=== PATIENT | female | born 1955 | race Two or more races ===

== ENCOUNTER 2017-06-23 17:24 | Emergency (ER) | payer MEDICAID ==
[~2017-06-23] VITALS: Ht 157.5 cm; Wt 72.6 kg
[~2017-06-23 17:24] MED LIST: ALPR0.5T; AMIT25TA9; ASPI81TA27; BISA1TAB; CARI-316; ENAL-3; GABA-497; HYDR-4663; HYDR25TA4; LEVO100T81; PROZAC; RABE20TA5
[2017-06-23 17:29] VITALS: BP 140/108
[2017-06-23] MEDS ORDERED: KETOROLAC TROMETH 60MG/2ML VIAL IM ONE (19:30)
== END 2017-06-23 19:55 | disposition home or self-care (01) ==
LOC: ER 17:33
DX: S63.501A Unspecified sprain of right wrist, initial encounter (principal); I10 Essential (primary) hypertension; M19.90 Unspecified osteoarthritis, unspecified site; Z88.5 Allergy status to narcotic agent; W11.XXXA Fall on and from ladder, initial encounter; Y93.89 Activity, other specified; Y99.8 Other external cause status; Y92.89 Other specified places as the place of occurrence of the external cause
CPT/HCPCS: 73110; 96372; 99284; J1885

== ENCOUNTER 2020-03-13 20:40 | Emergency (ER) | payer MEDICAID ==
[~2020-03-13] VITALS: Ht 157.5 cm; Wt 74.8 kg
[~2020-03-13 20:40] MED LIST changes: +ASPI-543; -ASPI81TA27; -CARI-316; +CARI350T22; -ENAL-3; +ENAL10TA13; -GABA-497; +GABA300C10; -HYDR-4663; +HYDR-4833
[2020-03-13 21:35] VITALS: BP 148/85
[2020-03-13 22:01] LABS: Urine Bacteria NONE SEEN /hpf (None Seen); Urine Blood Negative /uL (Negative); Urine Specific Gravity 1.014 (1.001-1.035); Urine WBC 1 /hpf (0 - 5)
[2020-03-13 22:41] LABS: Basophils # (auto) 0 10 ^3/uL (0-0.2); Basophils % (auto) 0.5 % (0.0-2.0); Eosinophils # (auto) 0.1 10 ^3/uL (0-0.8); Eosinophils % (auto) 1.6 % (0.0-7.0); Hematocrit 44.2 % (36.0-46.0); Hemoglobin 15.2 g/dL (12.2-16.2); Lymphocytes % (auto) 26.1 % (10.0-50.0); Mean Corpuscular Hgb Conc. 34.4 g/dL (32.0-36.0); Mean Corpuscular Volume 87.1 fL (80.0-100.0); Monocytes # (auto) 0.7 10 ^3/uL (0-1.3); Monocytes % (auto) 8.9 % (0.0-12.0); Neutrophils # (auto) 4.7 10 ^3/uL (1.6-8.6); Neutrophils % (auto) 62.9 % (37.0-80.0); Nucleated Red Blood Cells % 0.7 %; Platelet Count (auto) 204 10^3/uL (140-450); Red Blood Cells 5.08 10^6/uL (4.0-5.20); Red Cell Distribution Width 13.7 % (11.8-14.3); White Blood Cell 7.5 10^3/uL (4.4-10.8)
[2020-03-13 22:53] LABS: BUN/Creatinine Ratio 17.6; Calcium 8.5 mg/dL (8.5-10.1); Potassium 3.8 mmol/L (3.5-5.1)
[2020-03-13 22:55] LABS: Bilirubin, Total 0.3 mg/dL (0.2-1.0); Total Protein 7.8 g/dL (6.4-8.2)
== END 2020-03-14 01:20 | disposition home or self-care (01) ==
LOC: ER 20:41
DX: E11.649 Type 2 diabetes mellitus with hypoglycemia without coma (principal); M19.90 Unspecified osteoarthritis, unspecified site; I10 Essential (primary) hypertension; Z79.899 Other long term (current) drug therapy; Z79.82 Long term (current) use of aspirin; Z88.5 Allergy status to narcotic agent
CPT/HCPCS: 36415; 80053; 81001; 82962; 85025

== ENCOUNTER 2021-10-09 06:50 | Emergency (ER) | payer MEDICARE, MEDICAID ==
[~2021-10-09] VITALS: Ht 157.5 cm; Wt 72.6 kg
[~2021-10-09 06:50] MED LIST changes: +AMIT25TA12; -AMIT25TA9; +RABE20TA19; -RABE20TA5
[2021-10-09] MEDS ORDERED: KETOROLAC TROMETH 60MG/2ML VIAL IM ONE (08:15)
[2021-10-09 08:18] VITALS: BP 144/86
== END 2021-10-09 09:19 | disposition home or self-care (01) ==
LOC: ER 06:50
DX: M51.34 Other intervertebral disc degeneration, thoracic region (principal); M41.84 Other forms of scoliosis, thoracic region; F17.210 Nicotine dependence, cigarettes, uncomplicated; E11.9 Type 2 diabetes mellitus without complications; E78.5 Hyperlipidemia, unspecified; I10 Essential (primary) hypertension; Z88.6 Allergy status to analgesic agent
CPT/HCPCS: 72070; 73030; 93005; 96372; 99284; J1885

== ENCOUNTER 2023-09-20 12:20 | Inpatient (IN) | payer OTHER, MEDICAID ==
[~2023-09-20] VITALS: Ht 157.5 cm; Wt 78.5 kg
[~2023-09-20 12:20] MED LIST changes: -AMIT25TA12; +AMIT25TA20; -CARI350T22; +CARI350T27; -ENAL10TA13; +ENAL1TAB47; +GABA-1250; -GABA300C10
[2023-09-20 13:23] LABS: Basophils # (auto) 0 10 ^3/uL (0-0.2); Basophils % (auto) 0.6 % (0.0-2.0); Eosinophils # (auto) 0 10 ^3/uL (0-0.8); Eosinophils % (auto) 0.5 % (0.0-7.0); Hematocrit 50.3 % (36.0-46.0); Lymphocytes # (auto) 1.5 10 ^3/uL (0.4-5.4); Mean Corpuscular Hemoglobin 29.5 pg (28.0-32.0); Mean Corpuscular Hgb Conc. 33.8 g/dL (32.0-36.0); Mean Corpuscular Volume 87.4 fL (80.0-100.0); Monocytes # (auto) 0.5 10 ^3/uL (0-1.3); Monocytes % (auto) 6.8 % (0.0-12.0); Neutrophils # (auto) 5.5 10 ^3/uL (1.6-8.6); Neutrophils % (auto) 72.1 % (37.0-80.0); Red Blood Cells 5.75 10^6/uL (4.0-5.20); Red Cell Distribution Width 13.7 % (11.8-14.3); White Blood Cell 7.6 10^3/uL (4.4-10.8)
[2023-09-20 13:46] LABS: Alanine Aminotransferase 22 U/L (7-40); Albumin 5.2 g/dL (3.2-4.8); Alkaline Phosphatase 109 U/L (46-116); Anion Gap 6 (5-15); Aspartate Aminotransferase 21 U/L (13-40); BUN/Creatinine Ratio 10.1 (10.0-20.0); Blood Urea Nitrogen 9 mg/dL (9-23); Calcium 9.9 mg/dL (8.7-10.4); Carbon Dioxide 26 mmol/L (20-30); Chloride 109 mmol/L (98-107); Glucose 118 mg/dL (74-106); Potassium 3.9 mmol/L (3.5-5.1); Sodium 141 mmol/L (136-145); Total Protein 7.9 g/dL (5.7-8.2)
[2023-09-20] MEDS ORDERED: CLOPIDOGREL BISULFATE 75 MG TAB PO ONE (14:15)
[2023-09-20] MEDS ORDERED: ACETAMINOPHEN 325 MG TAB PO PRN (16:30)
[2023-09-20] MEDS ORDERED: DEXTROSE (50%) 50ML SYRG IV PRN (16:30)
[2023-09-20] MEDS ORDERED: NITROGLYCERIN 0.4 MG SL TAB SL PRN (16:30)
[2023-09-20] MEDS ORDERED: MORPHINE SULFATE INJ 2 MG/ml SYRG IV PRN (16:30)
[2023-09-20] MEDS ORDERED: DOCUSATE SOD 100 MG CAP PO PRN (16:30)
[2023-09-20] MEDS ORDERED: ONDANSETRON HCL 4 MG/2 ML VIAL IV PRN (16:30)
[2023-09-20] MEDS ORDERED: HYDROcodone-ACET 5/325MG TAB PO PRN (16:30)
[2023-09-20] MEDS ORDERED: TOLT1CAP29 PO (16:33)
[2023-09-20 17:11] LABS: Triglycerides 305 mg/dL (< 150)
[2023-09-20 17:12] LABS: LDL Cholesterol 142 mg/dL (< 100)
[2023-09-20 17:13] LABS: Cholesterol 207 mg/dL (< 200); HDL Cholesterol 31 mg/dL (40-59)
[2023-09-20] MEDS ORDERED: LORazepam 2MG/ML-1ML VIAL IV PRN (17:45)
[2023-09-20] MEDS: ACCU-CHEK COMFORT CURVE STRIP VI SCH ×2 (19:06→22:11)
[2023-09-20] MEDS: InsuLIN REG 1unit/0.01ml Soln (100units/ml) SC SCH ×2 (19:06→22:17)
[2023-09-20] MEDS: ATORVASTATIN 20 MG TAB PO SCH (22:18)
[2023-09-20] MEDS: GABAPENTIN 300 MG CAP PO SCH (22:18)
[2023-09-20] MEDS: OXYBUTYNIN CHL 5 MG TAB PO SCH (22:18)
[2023-09-21] VITALS (24 sets, daily range): BP systolic 108–155; BP diastolic 61–99; PULSE 53–89; RESP 14–19; TEMP 97–98.8; O2SAT 91–96
[2023-09-21] MEDS ORDERED: TRAM50TA2 PO (03:15)
[2023-09-21] MEDS ORDERED: METF-370 PO (03:16)
[2023-09-21] MEDS ORDERED: IBUP-1456 PO (03:16)
[2023-09-21] MEDS ORDERED: ENAL1TAB46 PO (03:17)
[2023-09-21] MEDS ORDERED: EMPA1TAB3 PO (03:18)
[2023-09-21] MEDS ORDERED: SIMV40TA18 PO (03:19)
[2023-09-21] MEDS ORDERED: ESOM40CA39 PO (03:19)
[2023-09-21] MEDS ORDERED: PRED10TA PO (03:21)
[2023-09-21] MEDS ORDERED: DOCU-94 PO (03:21)
[2023-09-21] MEDS: OXYBUTYNIN CHL 5 MG TAB PO SCH ×3 (06:01→20:57)
[2023-09-21] MEDS: ACCU-CHEK COMFORT CURVE STRIP VI SCH ×4 (06:02→20:58)
[2023-09-21] MEDS: GABAPENTIN 300 MG CAP PO SCH ×3 (06:02→20:57)
[2023-09-21] MEDS: LEVOTHYROXINE SODIUM 100 MCG TAB PO SCH (06:02)
[2023-09-21] MEDS: InsuLIN REG 1unit/0.01ml Soln (100units/ml) SC SCH ×4 (06:02→20:59)
[2023-09-21 06:13] LABS: Basophils # (auto) 0 10 ^3/uL (0-0.2); Basophils % (auto) 0.5 % (0.0-2.0); Eosinophils # (auto) 0.2 10 ^3/uL (0-0.8); Eosinophils % (auto) 2.1 % (0.0-7.0); Hematocrit 43.9 % (36.0-46.0); Lymphocytes # (auto) 2.1 10 ^3/uL (0.4-5.4); Mean Corpuscular Hemoglobin 30.1 pg (28.0-32.0); Mean Corpuscular Hgb Conc. 34.3 g/dL (32.0-36.0); Mean Corpuscular Volume 87.7 fL (80.0-100.0); Monocytes # (auto) 0.9 10 ^3/uL (0-1.3); Monocytes % (auto) 11.6 % (0.0-12.0); Neutrophils # (auto) 4.5 10 ^3/uL (1.6-8.6); Neutrophils % (auto) 58.8 % (37.0-80.0); Nucleated Red Blood Cells % 0.1 %; Red Cell Distribution Width 13.5 % (11.8-14.3); White Blood Cell 7.6 10^3/uL (4.4-10.8)
[2023-09-21 06:16] LABS: Alanine Aminotransferase 18 U/L (7-40); Albumin 4.3 g/dL (3.2-4.8); Alkaline Phosphatase 88 U/L (46-116); Anion Gap 9 (5-15); Aspartate Aminotransferase 19 U/L (13-40); BUN/Creatinine Ratio 10.3 (10.0-20.0); Bilirubin, Total 1.2 mg/dL (0.2-1.0); Blood Urea Nitrogen 9 mg/dL (9-23); Calcium 9.6 mg/dL (8.5-10.1); Carbon Dioxide 26 mmol/L (20-30); Chloride 107 mmol/L (98-107); Glucose 100 mg/dL (74-106); Potassium 3.7 mmol/L (3.5-5.1); Sodium 142 mmol/L (136-145); Total Protein 6.4 g/dL (5.7-8.2)
[2023-09-21] MEDS: CLOPIDOGREL BISULFATE 75 MG TAB PO SCH (08:59)
[2023-09-21] MEDS: ENOXAPARIN SOD 40 MG/0.4 ML SYRINGE SC SCH (10:00)
[2023-09-21] MEDS ORDERED: hydroCHLOROthiazide 25 MG TAB PO SCH (10:00)
[2023-09-21] MEDS ORDERED: GABAPENTIN 300 MG CAP PO SCH (10:00)
[2023-09-21 11:02] LABS: Urine WBC None Seen /hpf (0 - 5)
[2023-09-21] MEDS ORDERED: traMADol HCL 50 MG TAB PO PRN (11:15)
[2023-09-21] MEDS ORDERED: predniSONE 5 MG TAB PO ONE (11:15)
[2023-09-21 11:36] LABS: Urine Bacteria NONE SEEN /hpf (None Seen); Urine Blood Negative /uL (Negative); Urine Clarity Clear (Clear); Urine Color Yellow (Yellow); Urine Protein, UAD Negative (Negative); Urine Specific Gravity 1.012 (1.001-1.035); Urine Urobilinogen Normal (Negative); Urine pH 6.5 (5.0-8.0)
[2023-09-21] MEDS ORDERED: LIDOCAINE VISCOUS 2% 15ML UD MT ONE (14:30)
[2023-09-21] MEDS ORDERED: fentaNYL CITRATE 100 MCG/2 ML VL IV ONE ×2 (14:30→15:46)
[2023-09-21] MEDS ORDERED: MIDAZOLAM HCL 2MG/2ML 2ml VIAL (1mg/ml) IV ONE (14:30)
[2023-09-21] MEDS ORDERED: fentaNYL CITRATE 100 MCG/2 ML VL ONE (15:46)
[2023-09-21] MEDS: AMITRIPTYLINE HCL 25 MG TAB PO SCH (20:57)
[2023-09-21] MEDS: ATORVASTATIN 20 MG TAB PO SCH (20:58)
[2023-09-22 04:46] LABS: Basophils # (auto) 0 10 ^3/uL (0-0.2); Basophils % (auto) 0.6 % (0.0-2.0); Eosinophils # (auto) 0.1 10 ^3/uL (0-0.8); Eosinophils % (auto) 0.8 % (0.0-7.0); Hematocrit 47.5 % (36.0-46.0); Hemoglobin 15.8 g/dL (12.2-16.2); Lymphocytes # (auto) 1.8 10 ^3/uL (0.4-5.4); Lymphocytes % (auto) 20.3 % (10.0-50.0); Mean Corpuscular Hemoglobin 29.3 pg (28.0-32.0); Mean Corpuscular Hgb Conc. 33.3 g/dL (32.0-36.0); Monocytes # (auto) 0.7 10 ^3/uL (0-1.3); Monocytes % (auto) 8.5 % (0.0-12.0); Neutrophils # (auto) 6.1 10 ^3/uL (1.6-8.6); Neutrophils % (auto) 69.8 % (37.0-80.0); Nucleated Red Blood Cells % 0.2 %; Red Cell Distribution Width 13.5 % (11.8-14.3); White Blood Cell 8.7 10^3/uL (4.4-10.8)
[2023-09-22 04:54] LABS: Chloride 105 mmol/L (98-107); Potassium 3.8 mmol/L (3.5-5.1); Sodium 142 mmol/L (136-145)
[2023-09-22 04:55] LABS: Anion Gap 6 (5-15); Calcium 9.8 mg/dL (8.5-10.1); Carbon Dioxide 31 mmol/L (20-30)
[2023-09-22 04:58] LABS: INR 1.04 (0.9-1.15); Partial Thromboplastin Time 27.3 SEC (24.5-34.5); Prothrombin Time 10.9 sec (9.3-11.8)
[2023-09-22 05:00] LABS: BUN/Creatinine Ratio 13.2 (10.0-20.0); Blood Urea Nitrogen 14 mg/dL (9-23); Glucose 118 mg/dL (74-106)
[2023-09-22] MEDS: GABAPENTIN 300 MG CAP PO SCH ×3 (05:13→21:31)
[2023-09-22] MEDS: OXYBUTYNIN CHL 5 MG TAB PO SCH ×3 (05:13→21:32)
[2023-09-22] MEDS: InsuLIN REG 1unit/0.01ml Soln (100units/ml) SC SCH ×4 (06:06→21:44)
[2023-09-22] MEDS: ACCU-CHEK COMFORT CURVE STRIP VI SCH ×4 (06:06→21:45)
[2023-09-22] MEDS: LEVOTHYROXINE SODIUM 100 MCG TAB PO SCH (06:06)
[2023-09-22 08:00] VITALS: PULSE 58; PULSE 82; RESP 16; O2SAT 91
[2023-09-22 09:00] VITALS: BP 124/66; PULSE 58; RESP 17; TEMP 97.8; O2SAT 91
[2023-09-22] MEDS: ENALAPRIL MALEATE 10 MG TAB PO SCH (09:03)
[2023-09-22] MEDS: ENOXAPARIN SOD 40 MG/0.4 ML SYRINGE SC SCH (09:04)
[2023-09-22] MEDS: predniSONE 5 MG TAB PO SCH (09:04)
[2023-09-22] MEDS: FAMOTIDINE 20 MG TAB PO SCH (09:04)
[2023-09-22] MEDS: CLOPIDOGREL BISULFATE 75 MG TAB PO SCH (09:04)
[2023-09-22 13:00] VITALS: BP 128/68; PULSE 64; RESP 18; TEMP 97.7; O2SAT 94
[2023-09-22 17:00] VITALS: BP 125/75; PULSE 61; RESP 18; TEMP 97.4; O2SAT 93
[2023-09-22 20:00] VITALS: PULSE 60; RESP 16; O2SAT 91
[2023-09-22] MEDS: AMITRIPTYLINE HCL 25 MG TAB PO SCH (21:32)
[2023-09-22] MEDS: ATORVASTATIN 20 MG TAB PO SCH (21:38)
[2023-09-22 22:00] VITALS: BP 106/64; PULSE 64; RESP 18; TEMP 97.9; O2SAT 96
[2023-09-23 05:00] VITALS: BP 106/63; PULSE 63; RESP 18; TEMP 97.9; O2SAT 100
[2023-09-23 05:20] LABS: Chloride 104 mmol/L (98-107); Potassium 3.7 mmol/L (3.5-5.1); Sodium 140 mmol/L (136-145)
[2023-09-23 05:21] LABS: Anion Gap 5 (5-15); Calcium 9.8 mg/dL (8.5-10.1); Carbon Dioxide 31 mmol/L (20-30)
[2023-09-23 05:26] LABS: BUN/Creatinine Ratio 14.1 (10.0-20.0); Blood Urea Nitrogen 14 mg/dL (9-23); Glucose 104 mg/dL (74-106)
[2023-09-23] MEDS: InsuLIN REG 1unit/0.01ml Soln (100units/ml) SC SCH ×2 (06:39→12:36)
[2023-09-23] MEDS: LEVOTHYROXINE SODIUM 100 MCG TAB PO SCH (07:05)
[2023-09-23] MEDS: GABAPENTIN 300 MG CAP PO SCH (07:06)
[2023-09-23] MEDS: ACCU-CHEK COMFORT CURVE STRIP VI SCH ×2 (07:06→12:34)
[2023-09-23] MEDS: OXYBUTYNIN CHL 5 MG TAB PO SCH (07:06)
[2023-09-23 08:10] VITALS: PULSE 73; O2SAT 91
[2023-09-23 08:45] VITALS: BP 119/67; PULSE 62; RESP 17; TEMP 97.6; O2SAT 98
[2023-09-23] MEDS: FAMOTIDINE 20 MG TAB PO SCH (09:41)
[2023-09-23] MEDS: ENALAPRIL MALEATE 10 MG TAB PO SCH (09:41)
[2023-09-23] MEDS: predniSONE 5 MG TAB PO SCH (09:42)
[2023-09-23] MEDS: CLOPIDOGREL BISULFATE 75 MG TAB PO SCH (09:42)
[2023-09-23] MEDS: ENOXAPARIN SOD 40 MG/0.4 ML SYRINGE SC SCH (09:42)
[2023-09-23] MEDS ORDERED: ATOR20TA50 PO (12:32)
[2023-09-23] MEDS ORDERED: CLOP75TA70 PO (12:32)
[2023-09-23 12:35] VITALS: BP 109/67; PULSE 61; RESP 17; TEMP 98.1; O2SAT 94
== END 2023-09-23 18:36 | disposition home health service (06) | DRG 65 ==
LOC: ER 12:20 → TELE 16:30 → TELE-WESTW 09-21 00:56
PROVIDERS: ADMIT Nurse Practitioner Family; ATTEND Internal Medicine
PROC: B24BZZ4 Ultrasonography of Heart with Aorta, Transesophageal (ICD-10-PCS; principal; 2023-09-21)
DX: I63.9 Cerebral infarction, unspecified (principal); G81.94 Hemiplegia, unspecified affecting left nondominant side; I10 Essential (primary) hypertension; E78.5 Hyperlipidemia, unspecified; E11.9 Type 2 diabetes mellitus without complications; E03.9 Hypothyroidism, unspecified; E66.9 Obesity, unspecified; Z71.3 Dietary counseling and surveillance; M06.9 Rheumatoid arthritis, unspecified; L80 Vitiligo; M54.50 Low back pain, unspecified; G89.29 Other chronic pain; F32.A Depression, unspecified; G47.33 Obstructive sleep apnea (adult) (pediatric); I65.21 Occlusion and stenosis of right carotid artery; F41.9 Anxiety disorder, unspecified; I70.0 Atherosclerosis of aorta; F17.210 Nicotine dependence, cigarettes, uncomplicated; Z68.31 Body mass index [BMI] 31.0-31.9, adult; Z79.899 Other long term (current) drug therapy; Z79.02 Long term (current) use of antithrombotics/antiplatelets; Z80.0 Family history of malignant neoplasm of digestive organs; Z80.1 Family history of malignant neoplasm of trachea, bronchus and lung; Z86.73 Personal history of transient ischemic attack (TIA), and cerebral infarction without residual deficits; Z83.3 Family history of diabetes mellitus
CPT/HCPCS: 36415; 70450; 70551; 71045; 80048; 80053; 80061; 81001; 82962; 83036; 84443; 84484; 85025; 85610; 85730; 93005; 93312; 93886; 97110; 97116; 97163; 97530; 99152; 99291; G0378; J1815; J2250